=== PATIENT | male | born 1960 | race African-American/Black ===

== ENCOUNTER 2018-09-26 15:38 | Inpatient (IN) | payer OTHER ==
[2018-09-26 18:09] VITALS: BMI 25.4
[2018-09-26] MEDS ORDERED: MELATONIN 5 MG TABLETS PO PRN (22:00)
--- NOTE | 2018-09-26 22:40 | HP ---
"CIWA Score Nausea/Vomitin-Mild Nausea/No Vomiting Muscle Tremors: 4-Moderate,w/Arms Extend Anxiety: 3 Agitation: 4-Moderately Restless Paroxysmal Sweats: 1-Minimal Palms Moist Orientation: 1-Uncertain about Date Tacttile Disturbances: 0-None Auditory Disturbances: 0-None Visual Disturbances: 0-None Headache: 0-None Present CIWA-Ar Total Score: 14 - Admission Criteria OAS Guidelines: Admission for Medically Managed Detox: Requires at least one of the followin. CIWA greater than 12 2. Seizures within the past 24 hours 3. Delirium tremens within the past 24 hours 4. Hallucinations within the past 24 hours 5. Acute intervention needed for co occurring medical disorder 6. Acute intervention needed for co occurring psychiatric disorder 7. Severe withdrawal that cannot be handled at a lower level of care (continued vomiting, continued diarrhea, abnormal vital signs) requiring intravenous medication and/or fluids 8. Patient presents the following: CIWA greater than 12 Admission Criteria Met: Admission criteria met Admission ROS [facility] Chief Complaint: Here for alcohol withdrawal. Allergies/Adverse Reactions: Allergies Allergy/AdvReac Type Severity Reaction Status Date / Time Pork/Porcine Containing Allergy Intermediate Vomiting Verified 09/26/18 20:38 Products History of Present Illness: Alcohol use began at age 14. Cocaine use began at age 17. Nicotine use began at age 14. Declined patch. Will accept nicotine gum. Denies benzo use. Denies hx blackouts, seizures, overdoses. Longest length of sobriety 6 months on outside. States meetings helped to maintain sobriety. States hx abnormal heart beat and EKG. Denies heart attack, chest pain, edema, or SOB. Denies depression or mental health problems. Denies thoughts of harming self or others. Search Terms: Jonathan Clayton, 1960 Search Date: 09/26/2018 10:47:11 PM The Drug Utilization Report below displays all of the controlled substance prescriptions, if any, that your patient has filled in the last twelve months. The information displayed on this report is compiled from pharmacy submissions to the Department, and accurately reflects the information as submitted by the pharmacies. This report was requested by: Celeste Sousa | Reference #: [id number] There are no results for the search terms that you entered. Exam Limitations: No Limitations - Ebola screening Have you traveled outside of the country in the last 21 days: No Have you had contact with anyone from an Ebola affected area: No Have you been sick,other than usual withdrawal symptoms: No Do you have a fever: No - Review of Systems Constitutional: Changes in sleep (Difficulty falling asleep) EENT: reports: Nose Congestion, Dental Problems (Missing teeth. No pain. Chews and swallows okay.) Respiratory: reports: No Symptoms reported Cardiac: reports: No Symptoms Reported GI: reports: Diarrhea (Soft, watery, brown), Nausea : reports: Frequency (w/o burning or pain) Musculoskeletal: reports: Other (Frequent cramps in left leg) Integumentary: reports: Other (Scab on (R) thumb) Neuro: reports: Tremors Endocrine: reports: Increased Thirst Hematology: reports: No Symptoms Reported Psychiatric: reports: Judgement Intact, Orientated x3 (Missed by 1 day), Agitated, Anxious Patient History - Patient Medical History Hx Asthma: No Hx Chronic Obstructive Pulmonary Disease (COPD): No Hx Cardiac Disorders: No Hx Hypertension: No Hx Seizures: No Hx Diabetes: No Hx Gastrointestinal Disorders: No Hx Liver Disease: No Hx Genitourinary Disorders: No Hx Sexually Transmitted Disorders: No Hx Renal Disease (ESRD): No Hx Human Immunodeficiency Virus (HIV): No (2018) Hx Depression: No Hx Suicide Attempt: No Hx Schizophrenia: No - Patient Surgical History Past Surgical History: No Hx Neurologic Surgery: No Hx Cataract Extraction: No Hx Cardiac Surgery: No Hx Lung Surgery: No Hx Breast Surgery: No Hx Breast Biopsy: No Hx Abdominal Surgery: No Hx Appendectomy: No Hx Cholecystectomy: No Hx Genitourinary Surgery: No Hx Section: No Hx Orthopedic Surgery: No Anesthesia Reaction: No - PPD History Previous Implant?: Yes Documented Results: Negative w/proof Implanted On Prior R Admission?: No PPD to be Administered?: Yes - Smoking Cessation Smoking history: Current every day smoker Have you smoked in the past 12 months: Yes Aproximately how many cigarettes per day: 10 Hx Chewing Tobacco Use: No Initiated information on smoking cessation: Yes 'Breaking Loose' booklet given: 09/26/18 - Substance & Tx. History Hx Alcohol Use: Yes Hx Substance Use: Yes Substance Use Type: Alcohol, Cocaine Hx Substance Use Treatment: Yes (detox, rehab at [facility]) - Substances Abused Alcohol Route: Oral Frequency: Daily Amount used: liquor- 2 pint, beer- 1/2 case Age of first use: 14 Date of Last Use: 09/26/18 Crack Route: Smoking Frequency: Daily Amount used: 2gm Age of first use: 17 Date of Last Use: 09/25/18 Admission Physical Exam S - Vital Signs Vital Signs: Vital Signs - 24 hr 09/26/18 18:08 Temperature 98.6 F Pulse Rate 77 Respiratory 18 Rate Blood Pressure 154/92 - Physical General Appearance: Yes: Mild Distress, Tremorous, Sweating, Anxious HEENTM: Yes: EOMI (Jerking movement of eyes w/ lateral gaze), Normal Voice, CHARBEL , Pharynx Normal Respiratory: Yes: Chest Non-Tender, Lungs Clear, Normal Breath Sounds, No Respiratory Distress Neck: Yes: Supple, Thyroid enlarged Breast: Yes: Breast Exam Deferred Cardiology: Yes: Regular Rhythm, S1, S2, Tachycardia Abdominal: Yes: Non Tender, Flat, Soft, Increased Bowel Sounds Genitourinary: Yes: Within Normal Limits Back: Yes: Normal Inspection Musculoskeletal: Yes: full range of Motion Extremities: Yes: Normal Capillary Refill, Normal Range of Motion, Non-Tender, Tremors (Increased trremors of hands when arms elevated) 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 NML intact (Jerking movement of eyes w/ lateral gaze), Fully Oriented, Alert, Motor Strength 5/5, Normal Response Integumentary: Yes: Normal Color, Dry (Decreased skin turgor), Warm, Other ( Healing lesion (R) thumb area w/ thickened skin growth.) Lymphatic: Yes: Within Normal Limits - Diagnostic (1) Alcohol dependence with uncomplicated withdrawal Current Visit: Yes Status: Acute (2) Nicotine dependence, uncomplicated Current Visit: Yes Status: Chronic Qualifiers: Nicotine product type: cigarettes Qualified Code(s): F17.210 - Nicotine dependence, cigarettes, uncomplicated (3) Cocaine dependence, uncomplicated Current Visit: Yes Status: Chronic (4) Hand lesion Current Visit: Yes Status: Chronic (5) Tachycardia Current Visit: Yes Status: Chronic (6) Nystagmus Current Visit: Yes Status: Acute (7) Enlarged thyroid Current Visit: Yes Status: Chronic (8) Abnormal EKG Current Visit: Yes Status: Chronic Comment: States told had an abnormal EKG in the past w/ a fast heart beat. Denies chest pain, SOB, edema BHS Breath Alcohol Content Breath Alcohol Content: 0.12 Urine Drug Screen - Results Drug Screen Negative: No Urine Drug Screen Results: TATO-Cocaine, BZO-Benzodiazepines"
[2018-09-26] MEDS ORDERED: LOPERAMIDE HCL 2 MG CAPSULE PO PRN (23:35)
[2018-09-26] MEDS ORDERED: MAGNESIUM HYDROX 2400MG/30ML ORAL SUSPENSION 30 ML CUP PO PRN (23:35)
[2018-09-26] MEDS ORDERED: IBUPROFEN 400 MG TABLET (FP) PO PRN (23:35)
[2018-09-26] MEDS ORDERED: MAG HYDROX/AL HYDROX/SIMETH 30 ML UNIT-DOSE CUP PO PRN (23:35)
[2018-09-26] MEDS ORDERED: MENTHOL/PHENOL 1 EACH UD MM PRN (23:35)
[2018-09-26] MEDS ORDERED: chlordiazePOXIDE HCL 25 MG CAPSULE PO PRN (23:35)
[2018-09-26] MEDS ORDERED: ACETAMINOPHEN 325 MG TABLET (FP) PO PRN (23:35)
[2018-09-26] MEDS ORDERED: NICOTINE POLACRILEX 2 MG GUM BC PRN (23:35)
[2018-09-26] MEDS ORDERED: MAGNESIUM CITRATE 300 ML BOTTLE PO PRN (23:35)
[2018-09-26] MEDS ORDERED: P-EPHED 60MG/TRIPROLIDI 2.5MG TABLET PO PRN (23:35)
[2018-09-26] MEDS ORDERED: guaiFENesin 200 MG/10 ML 10 ML UNIT-DOSE CUPS PO PRN (23:37)
[2018-09-26] MEDS ORDERED: BACITRACIN 0.9 GM PACKET TP SCH (23:45)
[2018-09-27] MEDS: chlordiazePOXIDE HCL 25 MG CAPSULE PO SCH ×5 (00:41→22:10)
[2018-09-27] MEDS: BACITRACIN 0.9 GM PACKET TP SCH ×3 (00:44→22:10)
[2018-09-27] MEDS ORDERED: ASPIRIN 325 MG TABLET PO ONE (01:24)
--- NOTE | 2018-09-27 08:37 | EKG ---
Test Reason : Blood Pressure : / mmHG Vent. Rate : 067 BPM Atrial Rate : 067 BPM P-R Int : 152 ms QRS Dur : 112 ms QT Int : 432 ms P-R-T Axes : 049 003 054 degrees QTc Int : 456 ms NORMAL SINUS RHYTHM POSSIBLE LEFT ATRIAL ENLARGEMENT INCOMPLETE RIGHT BUNDLE BRANCH BLOCK LEFT VENTRICULAR HYPERTROPHY CANNOT RULE OUT SEPTAL INFARCT , AGE UNDETERMINED ABNORMAL ECG NO PREVIOUS ECGS AVAILABLE Confirmed by JONO ARNOLD, CLOTILDE ([id number]) on 09/27/2018 8:37:12 AM Referred By: Confirmed By:CLOTILDE DE LA CRUZ MD
[2018-09-27] MEDS: ASPIRIN 81 MG CHEWABLE TABLETS PO SCH (10:53)
[2018-09-27] MEDS: PRENATAL VITAMINS W/ FOLIC ACID TABLET (FP) PO SCH (10:53)
[2018-09-27 11:00] LABS: ALK PHOS 75 U/L (45-117); ANION GAP 5 MMOL/L (8-16); BILIRUBIN,TOTAL 0.6 mg/dL (0.2-1); BLOOD UREA NITROGEN 17 mg/dL (7-18); CALCIUM 8.9 mg/dL (8.5-10.1); CHLORIDE 107 mmol/L (98-107); CO2 28 mmol/L (21-32); CREATININE 1.3 mg/dL (0.55-1.3); GLUCOSE,RANDOM 85 mg/dL (74-106); POTASSIUM 4.4 mmol/L (3.5-5.1); SGOT/AST 16 U/L (15-37); SGPT/ALT 20 U/L (13-61); SODIUM 139 mmol/L (136-145); TOT PROT 6.5 g/dl (6.4-8.2)
[2018-09-27 11:12] LABS: HEMATOCRIT 40.5 % (35.4-49); HEMOGLOBIN 12.9 GM/dL (11.7-16.9); MCH 29.8 pg (25.7-33.7); MCHC 31.9 g/dl (32.0-35.9); MEAN CELL VOLUME 93.6 fl (80-96); MEAN PLT VOLUME 8.8 fl (7.5-11.1); PLATELET COUNT 206 K/MM3 (134-434); RBC 4.32 M/mm3 (4.00-5.60); WHITE BLOOD COUNT 4.2 K/mm3 (4.0-10.0)
--- NOTE | 2018-09-27 16:21 | PN ---
[facility] CIWA - CIWA Score Nausea/Vomitin-No Nausea/No Vomiting Muscle Tremors: None Anxiety: 2 Agitation: 0-Normal Activity Paroxysmal Sweats: 3 Orientation: 0-Oriented Tacttile Disturbances: 3-Moderate Itch/Numb/Burn Auditory Disturbances: 2-Mild Harshness/Frighten Visual Disturbances: 0-None Headache: 0-None Present CIWA-Ar Total Score: 10 S Progress Note (SOAP) Subjective: Interrupted Sleep, Fatigue, Sweating. Objective: PATIENT A & O X 3. IN NO ACUTE DISTRESS. 09/27/18 16:19 Vital Signs Temperature 98.4 F 09/27/18 14:00 Pulse Rate 82 09/27/18 14:00 Respiratory Rate 18 09/27/18 14:00 Blood Pressure 135/67 09/27/18 14:00 O2 Sat by Pulse Oximetry (%) Laboratory Tests 09/27/18 09/27/18 09/27/18 07:45 07:45 07:45 WBC 4.2 RBC 4.32 Hgb 12.9 Hct 40.5 MCV 93.6 MCH 29.8 MCHC 31.9 L RDW 13.0 Plt Count 206 MPV 8.8 Sodium 139 Potassium 4.4 Chloride 107 Carbon Dioxide 28 Anion Gap 5 L BUN 17 Creatinine 1.3 Creat Clearance w eGFR 57.10 Random Glucose 85 Calcium 8.9 Total Bilirubin 0.6 AST 16 ALT 20 Alkaline Phosphatase 75 Total Protein 6.5 Albumin 3.0 L HIV 1&2 Antibody Screen Negative HIV P24 Antigen Negative LABS NOTED. RPR RESULT PENDING. RESULTS OF REPEAT ECG NOTED. PATIENT REPORTS HISTORY OF PREVIOUS ECG ABNORMALITY. 09/27/18 16:20 Assessment: 09/27/18 16:19 WITHDRAWAL SYMPTOMS. Plan: CONTINUE DETOX. D/C IBUPROFEN AND MAGNESIUM-CONTAINING MEDS. FOR ABNORMAL ADMISSION RENAL LAB VALUES.
[2018-09-27] MEDS: THIAMINE HCL 100 MG TABLET (FP) PO SCH (22:11)
[2018-09-28] MEDS: chlordiazePOXIDE HCL 25 MG CAPSULE PO SCH ×3 (05:32→17:08)
--- NOTE | 2018-09-28 08:31 | EKG ---
Test Reason : Blood Pressure : / mmHG Vent. Rate : 078 BPM Atrial Rate : 078 BPM P-R Int : 148 ms QRS Dur : 112 ms QT Int : 416 ms P-R-T Axes : 062 006 066 degrees QTc Int : 474 ms NORMAL SINUS RHYTHM INCOMPLETE RIGHT BUNDLE BRANCH BLOCK SEPTAL INFARCT (CITED ON OR BEFORE 26-SEP-2018) ABNORMAL ECG WHEN COMPARED WITH ECG OF 26-SEP-2018 23:49, QUESTIONABLE CHANGE IN INITIAL FORCES OF SEPTAL LEADS Confirmed by CLOTILDE DE LA CRUZ MD ([id number]) on 09/28/2018 8:31:30 AM Referred By: Confirmed By:CLOTILDE DE LA CRUZ MD
[2018-09-28] MEDS: ASPIRIN 81 MG CHEWABLE TABLETS PO SCH (10:46)
[2018-09-28] MEDS: BACITRACIN 0.9 GM PACKET TP SCH ×2 (10:46→22:22)
[2018-09-28] MEDS: PRENATAL VITAMINS W/ FOLIC ACID TABLET (FP) PO SCH (10:46)
--- NOTE | 2018-09-28 17:42 | PN ---
S CIWA - CIWA Score Nausea/Vomitin Muscle Tremors: 3 Anxiety: 3 Agitation: 3 Paroxysmal Sweats: 3 Orientation: 0-Oriented Tacttile Disturbances: 0-None Auditory Disturbances: 0-None Visual Disturbances: 0-None Headache: 0-None Present CIWA-Ar Total Score: 14 BHS Progress Note (SOAP) Subjective: Interrupted sleep Objective: 09/28/18 17:40 Last Vital Signs Temp Pulse Resp BP Pulse Ox 98.6 F 76 16 151/84 09/28/18 14:28 09/28/18 14:28 09/28/18 14:28 09/28/18 14:28 Elevated b/p noted 151/84 Laboratory Tests 09/27/18 09/27/18 09/27/18 07:45 07:45 07:45 WBC 4.2 RBC 4.32 Hgb 12.9 Hct 40.5 MCV 93.6 MCH 29.8 MCHC 31.9 L RDW 13.0 Plt Count 206 MPV 8.8 Sodium 139 Potassium 4.4 Chloride 107 Carbon Dioxide 28 Anion Gap 5 L BUN 17 Creatinine 1.3 Creat Clearance w eGFR 57.10 Random Glucose 85 Calcium 8.9 Total Bilirubin 0.6 AST 16 ALT 20 Alkaline Phosphatase 75 Total Protein 6.5 Albumin 3.0 L Total T3 RPR Titer HIV 1&2 Antibody Screen Negative HIV P24 Antigen Negative 09/27/18 09/27/18 07:45 07:45 WBC RBC Hgb Hct MCV MCH MCHC RDW Plt Count MPV Sodium Potassium Chloride Carbon Dioxide Anion Gap BUN Creatinine Creat Clearance w eGFR Random Glucose Calcium Total Bilirubin AST ALT Alkaline Phosphatase Total Protein Albumin Total T3 94.00 RPR Titer Nonreactive HIV 1&2 Antibody Screen HIV P24 Antigen Labs reviewed: prerenal azotemia Assessment: 09/28/18 17:40 Withdrawal symptoms Elevated b/p and azotemia noted Plan: Continue detox Elevated b/p: clonidine prn Azotemia: encouraged PO water intake
[2018-09-28] MEDS: chlordiazePOXIDE 5 MG CAPSULE PO SCH (22:22)
[2018-09-28] MEDS: THIAMINE HCL 100 MG TABLET (FP) PO SCH (22:22)
[2018-09-29] MEDS: chlordiazePOXIDE 5 MG CAPSULE PO SCH ×3 (06:05→17:45)
[2018-09-29] MEDS: cloNIDine HCL 0.1 MG TABLET PO PRN ×2 (07:00→15:52)
[2018-09-29] MEDS ORDERED: SIMETHICONE 80 MG TAB.CHEW (FP) PO PRN (10:11)
[2018-09-29 10:36] LABS: URINE APPEARANCE CLEAR; URINE BILIRUBIN NEGATIVE (<2.0 mg/dL); URINE COLOR LTYELLOW; URINE GLUCOSE (UA) NEGATIVE (NEGATIVE); URINE KETONE NEGATIVE (NEGATIVE); URINE LEUK ESTERASE NEGATIVE (NEGATIVE); URINE NITRITE NEGATIVE (NEGATIVE); URINE PROTEIN NEGATIVE (NEGATIVE); URINE UROBILINOGEN NEGATIVE mg/dL (0.2-1.0)
--- NOTE | 2018-09-29 10:41 | PN ---
BHS Progress Note (SOAP) Subjective: feeling better gi gassy tremor sweating Objective: 09/29/18 10:40 Vital Signs Temperature 97.3 F L 09/29/18 09:33 Pulse Rate 69 09/29/18 09:33 Respiratory Rate 18 09/29/18 09:33 Blood Pressure 111/66 09/29/18 09:33 O2 Sat by Pulse Oximetry (%) Laboratory Last Values WBC 4.2 K/mm3 (4.0-10.0) 09/27/18 07:45 RBC 4.32 M/mm3 (4.00-5.60) 09/27/18 07:45 Hgb 12.9 GM/dL (11.7-16.9) 09/27/18 07:45 Hct 40.5 % (35.4-49) 09/27/18 07:45 MCV 93.6 fl (80-96) 09/27/18 07:45 MCH 29.8 pg (25.7-33.7) 09/27/18 07:45 MCHC 31.9 g/dl (32.0-35.9) L 09/27/18 07:45 RDW 13.0 % (11.9-15.9) 09/27/18 07:45 Plt Count 206 K/MM3 (134-434) 09/27/18 07:45 MPV 8.8 fl (7.5-11.1) 09/27/18 07:45 Sodium 139 mmol/L (136-145) 09/27/18 07:45 Potassium 4.4 mmol/L (3.5-5.1) 09/27/18 07:45 Chloride 107 mmol/L (98-107) 09/27/18 07:45 Carbon Dioxide 28 mmol/L (21-32) 09/27/18 07:45 Anion Gap 5 MMOL/L (8-16) L 09/27/18 07:45 BUN 17 mg/dL (7-18) 09/27/18 07:45 Creatinine 1.3 mg/dL (0.55-1.3) 09/27/18 07:45 Creat Clearance w eGFR 57.10 (>60) 09/27/18 07:45 Random Glucose 85 mg/dL (74-106) 09/27/18 07:45 Calcium 8.9 mg/dL (8.5-10.1) 09/27/18 07:45 Total Bilirubin 0.6 mg/dL (0.2-1) 09/27/18 07:45 AST 16 U/L (15-37) 09/27/18 07:45 ALT 20 U/L (13-61) 09/27/18 07:45 Alkaline Phosphatase 75 U/L (45-117) 09/27/18 07:45 Total Protein 6.5 g/dl (6.4-8.2) 09/27/18 07:45 Albumin 3.0 g/dl (3.4-5.0) L 09/27/18 07:45 Total T3 94.00 ng/dl (71-180) 09/27/18 07:45 RPR Titer Nonreactive (NONREACTIVE) 09/27/18 07:45 HIV 1&2 Antibody Screen Negative 09/27/18 07:45 HIV P24 Antigen Negative 09/27/18 07:45 lab noted Assessment: 09/29/18 10:41 mild withdrawal sx Plan: continue detox
[2018-09-29] MEDS: ASPIRIN 81 MG CHEWABLE TABLETS PO SCH (10:43)
[2018-09-29] MEDS: PRENATAL VITAMINS W/ FOLIC ACID TABLET (FP) PO SCH (10:43)
[2018-09-29] MEDS: BACITRACIN 0.9 GM PACKET TP SCH ×2 (14:03→22:19)
[2018-09-29] MEDS: THIAMINE HCL 100 MG TABLET (FP) PO SCH (22:19)
[2018-09-29] MEDS: chlordiazePOXIDE HCL 10 MG CAPSULE PO SCH (22:19)
[2018-09-30] MEDS: chlordiazePOXIDE HCL 10 MG CAPSULE PO SCH ×2 (06:52→13:24)
[2018-09-30 09:16] VITALS: TEMP 97.1
[2018-09-30] MEDS: ASPIRIN 81 MG CHEWABLE TABLETS PO SCH (10:43)
[2018-09-30] MEDS: BACITRACIN 0.9 GM PACKET TP SCH (10:43)
[2018-09-30] MEDS: PRENATAL VITAMINS W/ FOLIC ACID TABLET (FP) PO SCH (10:44)
[2018-09-30 13:21] VITALS: BP 127/76; PULSE 84
--- NOTE | 2018-09-30 15:16 | DS ---
[facility] Detox Discharge Summary Admission Date: 09/26/18 Discharge Date: 09/30/18 - History Present History: Alcohol Dependence, Cocaine Dependence Additional Comments: PATIENT SCHEDULED FOR DISCHARGE FROM DETOX UNIT TODAY. PATIENT GOING TO [facility] PATIENT WAS DISCHARGED FROM DETOX UNIT TO BE TAKEN OVER TO REHAB UNIT IN STABLE MEDICAL CONDITION. Pertinent Past History: History of Enlarged Thyroid, History of Abnormal EKG, Nicotine Dependence, Hand Lesion, History of Nystagmus, History of Tachycardia. - Physical Exam Results Vital Signs: Vital Signs Temperature 97.1 F L 09/30/18 13:20 Pulse Rate 84 09/30/18 13:20 Respiratory Rate 18 09/30/18 13:20 Blood Pressure 127/76 09/30/18 13:20 O2 Sat by Pulse Oximetry (%) Pertinent Admission Physical Exam Findings: WITHDRAWAL SYMPTOMS. Laboratory Tests 09/27/18 09/27/18 09/27/18 07:45 07:45 07:45 WBC 4.2 RBC 4.32 Hgb 12.9 Hct 40.5 MCV 93.6 MCH 29.8 MCHC 31.9 L RDW 13.0 Plt Count 206 MPV 8.8 Sodium 139 Potassium 4.4 Chloride 107 Carbon Dioxide 28 Anion Gap 5 L BUN 17 Creatinine 1.3 Creat Clearance w eGFR 57.10 Random Glucose 85 Calcium 8.9 Total Bilirubin 0.6 AST 16 ALT 20 Alkaline Phosphatase 75 Total Protein 6.5 Albumin 3.0 L Total T3 Urine Color Urine Appearance Urine pH Ur Specific [place] Urine Protein Urine Glucose (UA) Urine Ketones Urine Blood Urine Nitrite Urine Bilirubin Urine Urobilinogen Ur Leukocyte Esterase RPR Titer HIV 1&2 Antibody Screen Negative HIV P24 Antigen Negative 09/27/18 09/27/18 09/29/18 07:45 07:45 07:00 WBC RBC Hgb Hct MCV MCH MCHC RDW Plt Count MPV Sodium Potassium Chloride Carbon Dioxide Anion Gap BUN Creatinine Creat Clearance w eGFR Random Glucose Calcium Total Bilirubin AST ALT Alkaline Phosphatase Total Protein Albumin Total T3 94.00 Urine Color Ltyellow Urine Appearance Clear Urine pH 5.0 Ur Specific [place] 1.017 Urine Protein Negative Urine Glucose (UA) Negative Urine Ketones Negative Urine Blood Negative Urine Nitrite Negative Urine Bilirubin Negative Urine Urobilinogen Negative Ur Leukocyte Esterase Negative RPR Titer Nonreactive HIV 1&2 Antibody Screen HIV P24 Antigen LABS NOTED. - Treatment Hospital Course: Detox Protocol Followed, Detoxed Safely, Responded well, Discharged Condition Good, Rehab Referral Accepted Patient has Accepted a Rehab Referral to: [facility] ([place], [place]). - Medication Discharge Medications: Ambulatory Orders NK [No Known Home Medication] 09/26/18 - Diagnosis (1) Alcohol dependence with uncomplicated withdrawal Status: Acute (2) Nystagmus Status: Acute (3) Abnormal EKG Status: Chronic (4) Cocaine dependence, uncomplicated Status: Chronic (5) Enlarged thyroid Status: Chronic (6) Hand lesion Status: Chronic (7) Nicotine dependence, uncomplicated Status: Chronic Qualifiers: Nicotine product type: cigarettes Qualified Code(s): F17.210 - Nicotine dependence, cigarettes, uncomplicated (8) Tachycardia Status: Chronic - AMA Did Patient Leave Against Medical Advice: No
== END 2018-09-30 13:28 | disposition other institution (70) | DRG 774 ==
LOC: YASAS 15:38 → Y3N 22:40
PROC: HZ2ZZZZ Detoxification Services for Substance Abuse Treatment (ICD-10-PCS; principal; 2018-09-26)
DX: F10.230 Alcohol dependence with withdrawal, uncomplicated (principal); F14.20 Cocaine dependence, uncomplicated; F17.210 Nicotine dependence, cigarettes, uncomplicated; H55.00 Unspecified nystagmus; L98.9 Disorder of the skin and subcutaneous tissue, unspecified; R79.89 Other specified abnormal findings of blood chemistry; R03.0 Elevated blood-pressure reading, without diagnosis of hypertension; E04.9 Nontoxic goiter, unspecified; Z86.79 Personal history of other diseases of the circulatory system
CPT/HCPCS: 36415; 80053; 81003; 84436; 84480; 85027; 86593; 87389; 93005; 93010; J0735

== ENCOUNTER 2018-09-30 13:38 | Inpatient (IN) | payer OTHER ==
[2018-09-30] MEDS ORDERED: P-EPHED 60MG/TRIPROLIDI 2.5MG TABLET PO PRN (14:03)
[2018-09-30] MEDS ORDERED: MAG HYDROX/AL HYDROX/SIMETH 30 ML UNIT-DOSE CUP PO PRN (14:03)
[2018-09-30] MEDS ORDERED: IBUPROFEN 400 MG TABLET (FP) PO PRN (14:03)
[2018-09-30] MEDS ORDERED: guaiFENesin/D-METHORPHAN HB 10 ML UNIT-DOSE CUPS PO PRN (14:03)
[2018-09-30] MEDS ORDERED: LOPERAMIDE HCL 2 MG CAPSULE PO PRN (14:03)
[2018-09-30] MEDS ORDERED: MAGNESIUM CITRATE 300 ML BOTTLE PO PRN (14:03)
[2018-09-30] MEDS ORDERED: MENTHOL/PHENOL 1 EACH UD MM PRN (14:03)
[2018-09-30] MEDS ORDERED: MAGNESIUM HYDROX 2400MG/30ML ORAL SUSPENSION 30 ML CUP PO PRN (14:03)
[2018-09-30] MEDS ORDERED: ACETAMINOPHEN 325 MG TABLET (FP) PO PRN (14:03)
[2018-09-30] MEDS ORDERED: NICOTINE POLACRILEX 2 MG GUM BUC PRN (14:05)
--- NOTE | 2018-09-30 14:08 | HP ---
NELLY ARNOLD Rehab Assess/Revision - Admission History Ad[facility]hab [facility] Date of Admission to Rehab: 09/30/18 - Findings Detox History & Physical reviewed: Yes Concur with findings: Yes Comments/Additional Findings: detox completed on today and referred to [facility]. Inpatient Rehab Admission - Initial Determination Are CD services needed?: Yes Free of communicable disease: Yes Not in need of hospitalization: Yes - Rehab Admission Criteria Patient is meeting Inpatient Rehab admission criteria:: Yes
[2018-09-30] MEDS: NICOTINE 14 MG/24 HOURS TOPICAL PATCH TD SCH (15:25)
[2018-09-30] MEDS: THIAMINE HCL 100 MG TABLET (FP) PO SCH (21:25)
[2018-09-30] MEDS: MELATONIN 5 MG TABLETS PO PRN (21:26)
--- NOTE | 2018-10-01 06:16 | HP ---
Psychiatrist Admission - Data Date of interview: 10/01/18 Admission source: [facility] Identifying data: THis is the first [facility] admission for this 58 years old maried Black male, father of 2 children, unemployed with no source of income, homeless Medical History: Unremarkable. Smokes 10 cigarettes daily Psychiatric History: Denies history of previous psychiatric treatment Physical/Sexual Abuse/Trauma History: Denies history of emotional, physical or sexual abuse as well as DV relationship. No service Additional Comment: Denies criminal history Vital Signs: Vital Signs - 24 hr 09/30/18 10/01/18 10/01/18 14:00 00:30 03:30 Temperature 97.9 F Pulse Rate 86 Respiratory 18 18 18 Rate Blood Pressure 141/75 Allergies/Adverse Reactions: Allergies Allergy/AdvReac Type Severity Reaction Status Date / Time Pork/Porcine Containing Allergy Intermediate Vomiting Verified 09/26/18 20:38 Products Date of last physical exam: 09/26/18 Concur with the findings of this exam: Yes - Substance Abuse/Tx History Hx Alcohol Use: Yes Hx Substance Use: Yes Substance Use Type: Alcohol (Started drinking alcohol at age 14, consumes 2 pints of liquor & half a can of beer daily. Last drank on 09/26/18), Cocaine ( Started smoking crack cocaine at age 17, consumes 2 grams daily. Last smoked on 09/25/18) Hx Substance Use Treatment: No Mental Status Exam - Mental Status Exam Alert and Oriented to: Time, Place, Person Cognitive Function: Fair Patient Appearance: Disheveled Mood: Hopeful, Euthymic Affect: Appropriate Speech Pattern: Clear Voice Loudness: Normal Thought Process: Intact, Goal Oriented Thought Disorder: Not Present Hallucinations: Denies Suicidal Ideation: Denies Homicidal Ideation: Denies Insight/Judgement: Fair Sleep: Fair Appetite: Good Muscle strength/Tone: Normal Gait/Station: Normal Psychiatric Findings - Problem List ([place] 1, 2,3) (1) Alcohol dependence Current Visit: Yes Status: Acute (2) Cocaine dependence Current Visit: Yes Status: Acute (3) Nicotine dependence Current Visit: Yes Status: Chronic - Initial Treatment Plan Initial Treatment Plan: Monitor progress
[2018-10-01] MEDS: PRENATAL VITAMINS W/ FOLIC ACID TABLET (FP) PO SCH (09:56)
[2018-10-01] MEDS: NICOTINE 14 MG/24 HOURS TOPICAL PATCH TD SCH (09:57)
[2018-10-01] MEDS: MELATONIN 5 MG TABLETS PO PRN (21:21)
[2018-10-01] MEDS: THIAMINE HCL 100 MG TABLET (FP) PO SCH (21:21)
[2018-10-02] MEDS: PRENATAL VITAMINS W/ FOLIC ACID TABLET (FP) PO SCH (11:32)
[2018-10-02] MEDS: NICOTINE 14 MG/24 HOURS TOPICAL PATCH TD SCH (11:32)
[2018-10-02] MEDS: MELATONIN 5 MG TABLETS PO PRN (21:17)
[2018-10-02] MEDS: THIAMINE HCL 100 MG TABLET (FP) PO SCH (21:17)
[2018-10-03] MEDS: NICOTINE 14 MG/24 HOURS TOPICAL PATCH TD SCH (10:04)
[2018-10-03] MEDS: PRENATAL VITAMINS W/ FOLIC ACID TABLET (FP) PO SCH (10:04)
--- NOTE | 2018-10-03 10:37 | PN ---
BHS Progress Note Note: Patient complains of sleeping poorly despite taking Melatonin 5 mg po HS prn. Requests to be ordered a higher dosage. Melatonin dosage is increased to 10 mg po HS prn for insomnia
[2018-10-03] MEDS: THIAMINE HCL 100 MG TABLET (FP) PO SCH (21:21)
[2018-10-03] MEDS: MELATONIN 5 MG TABLETS PO PRN (21:21)
[2018-10-04] MEDS ORDERED: cloNIDine HCL 0.1 MG TABLET PO ONE (07:03)
--- NOTE | 2018-10-04 07:06 | PN ---
BHS Progress Note Note: Patient's blood pressure is B/P 154/111. Patient is asymptomatic Vital Signs Temperature 97.6 F 10/04/18 06:42 Pulse Rate 84 10/04/18 06:43 Respiratory Rate 18 10/04/18 06:42 Blood Pressure 154/111 H 10/04/18 06:43 O2 Sat by Pulse Oximetry (%) Action: Clonidine 0.1mg 1 tablet oral ordered
[2018-10-04] MEDS: NICOTINE 14 MG/24 HOURS TOPICAL PATCH TD SCH (10:11)
[2018-10-04] MEDS: PRENATAL VITAMINS W/ FOLIC ACID TABLET (FP) PO SCH (10:11)
[2018-10-04] MEDS: THIAMINE HCL 100 MG TABLET (FP) PO SCH (21:24)
[2018-10-04] MEDS: MELATONIN 5 MG TABLETS PO PRN (21:25)
[2018-10-05] MEDS: PRENATAL VITAMINS W/ FOLIC ACID TABLET (FP) PO SCH (11:07)
[2018-10-05] MEDS: NICOTINE 14 MG/24 HOURS TOPICAL PATCH TD SCH (11:09)
[2018-10-05] MEDS: MELATONIN 5 MG TABLETS PO PRN (21:18)
[2018-10-05] MEDS: THIAMINE HCL 100 MG TABLET (FP) PO SCH (21:18)
[2018-10-06] MEDS: NICOTINE 14 MG/24 HOURS TOPICAL PATCH TD SCH (10:11)
[2018-10-06] MEDS: PRENATAL VITAMINS W/ FOLIC ACID TABLET (FP) PO SCH (10:11)
[2018-10-06] MEDS: THIAMINE HCL 100 MG TABLET (FP) PO SCH (21:26)
[2018-10-06] MEDS: MELATONIN 5 MG TABLETS PO PRN (21:26)
[2018-10-07 07:04] VITALS: BP 133/81; PULSE 83; TEMP 97.4
[2018-10-07] MEDS: NICOTINE 14 MG/24 HOURS TOPICAL PATCH TD SCH (10:29)
[2018-10-07] MEDS: PRENATAL VITAMINS W/ FOLIC ACID TABLET (FP) PO SCH (10:29)
[2018-10-07] MEDS: MELATONIN 5 MG TABLETS PO PRN (21:19)
[2018-10-07] MEDS: THIAMINE HCL 100 MG TABLET (FP) PO SCH (21:20)
[2018-10-08] MEDS: NICOTINE 14 MG/24 HOURS TOPICAL PATCH TD SCH (10:05)
[2018-10-08] MEDS: PRENATAL VITAMINS W/ FOLIC ACID TABLET (FP) PO SCH (10:05)
--- NOTE | 2018-10-08 11:26 | PN ---
Psychiatric Progress Note Vital Signs: Vital Signs Period Temp Pulse Resp BP Sys/[place] Pulse Ox Last 24 Hr 18-18 Date of Session: 10/08/18 Chief Complaint:: Discharge visit HPI: Patient addressed Alcohol and Cocaine dependence. ROS: Hand lesion,Enlarged thyroid. Current Medications: Active Medications Generic Name Dose Route Start Last Admin Trade Name Freq PRN Reason Stop Dose Admin Acetaminophen 650 mg 09/30/18 14:03 Tylenol - PO Q4H PRN FEVER Al Hydroxide/Mg Hydroxide 30 ml 09/30/18 14:03 Mylanta Oral Suspension - PO Q6H PRN DYSPEPSIA Eucalyptus/Menthol/Phenol/Sorbitol 1 each 09/30/18 14:03 Cepastat Lozenge - MM Q4H PRN SORE THROAT Guaifenesin 10 ml 09/30/18 14:03 Robitussin Dm - PO Q6H PRN COUGH Ibuprofen 400 mg 09/30/18 14:03 Motrin - PO Q6H PRN Pain Level 4-6 Loperamide HCl 4 mg 09/30/18 14:03 Imodium - PO Q6H PRN DIARRHEA Magnesium Citrate 300 ml 09/30/18 14:03 Citroma - PO Q48H PRN CONSTIPATION Magnesium Hydroxide 30 ml 09/30/18 14:03 Milk Of Magnesia - PO DAILY PRN CONSTIPATION Melatonin 10 mg 10/03/18 10:33 10/07/18 21:19 Melatonin PO 10 mg HS PRN Administration INSOMNIA Nicotine 14 mg 09/30/18 15:10 10/08/18 10:05 Nicoderm Patch - TD Not Given DAILY LAISHA Nicotine Polacrilex 2 mg 09/30/18 14:05 Nicorette Gum - BUC Q2H PRN NICOTINE REPLACEMENT RX Multivit/Folic Acid/Iron 1 tab 10/01/18 10:00 10/08/18 10:05 Vitamins (Sjr) - PO Not Given DAILY LAISHA Pseudoephedrine/Triprolidine 1 combo 09/30/18 14:03 Actifed - PO TID PRN NASAL CONGESTION Thiamine HCl 100 mg 09/30/18 22:00 10/07/18 21:20 Vitamin B1 - PO 100 mg HS LAISHA Administration Current Side Effect: No Lab tests ordered: No Lab tests reviewed: Yes Provider note:: Patient will complete this program tomorrow 10/09/18.He has met his treatment goals and will continue to address his issues on outpatient basis at the [facility] in [facility]. Patient identifies areas of difficulties,behaviors which contribute to relapse.Coping skills,support utilization has been discussed with the patient as well as other resourses to maintain recovery. Emotional support provided. Patient is stable for discharge tomorrow 10/09/18. Total face to face time:: 30 Mental Status Exam - Mental Status Exam Alert and Oriented to: Time, Place, Person Cognitive Function: Grossly Intact Patient Appearance: Well Groomed Mood: Euthymic Affect: Appropriate, Mood Congruent Patient Behavior: Cooperative Speech Pattern: Clear Voice Loudness: Normal Thought Process: Goal Oriented Thought Disorder: Not Present Hallucinations: Denies Suicidal Ideation: Denies Homicidal Ideation: Denies Insight/Judgement: Fair Sleep: Fair Appetite: Fair Muscle strength/Tone: Normal Gait/Station: Normal Psychiatric Treatment Plan - Problem List (1) Alcohol dependence Current Visit: Yes (2) Cocaine dependence Current Visit: Yes (3) Nicotine dependence Current Visit: Yes (4) Nystagmus Current Visit: No
[2018-10-08] MEDS: THIAMINE HCL 100 MG TABLET (FP) PO SCH (23:03)
[2018-10-09] MEDS: NICOTINE 14 MG/24 HOURS TOPICAL PATCH TD SCH (10:21)
[2018-10-09] MEDS: PRENATAL VITAMINS W/ FOLIC ACID TABLET (FP) PO SCH (10:21)
--- NOTE | 2018-10-09 10:42 | PN ---
[facility] Progress Note Note: PT COMPLETED REHAB AND DISCHARGING TODAY. ALERT O X 3. REFERRED TO [facility] OPD- ON [address], [place], [place] TREATMENT. 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 PT REPORTS HE WILL FOLLOW UP AT [facility] FOR MEDICAL MANAGEMENT IF NEEDED. Vital Signs - 24 hr 10/09/18 10/09/18 10/09/18 00:30 03:30 06:46 Respiratory 18 18 18 Rate Active Medications Generic Name Dose Route Start Last Admin Trade Name Freq PRN Reason Stop Dose Admin Acetaminophen 650 mg 09/30/18 14:03 Tylenol - PO Q4H PRN FEVER Al Hydroxide/Mg Hydroxide 30 ml 09/30/18 14:03 Mylanta Oral Suspension - PO Q6H PRN DYSPEPSIA Eucalyptus/Menthol/Phenol/Sorbitol 1 each 09/30/18 14:03 Cepastat Lozenge - MM Q4H PRN SORE THROAT Guaifenesin 10 ml 09/30/18 14:03 Robitussin Dm - PO Q6H PRN COUGH Ibuprofen 400 mg 09/30/18 14:03 Motrin - PO Q6H PRN Pain Level 4-6 Loperamide HCl 4 mg 09/30/18 14:03 Imodium - PO Q6H PRN DIARRHEA Magnesium Citrate 300 ml 09/30/18 14:03 Citroma - PO Q48H PRN CONSTIPATION Magnesium Hydroxide 30 ml 09/30/18 14:03 Milk Of Magnesia - PO DAILY PRN CONSTIPATION Melatonin 10 mg 10/03/18 10:33 10/07/18 21:19 Melatonin PO 10 mg HS PRN Administration INSOMNIA Nicotine 14 mg 09/30/18 15:10 10/09/18 10:21 Nicoderm Patch - TD Not Given DAILY LAISHA Nicotine Polacrilex 2 mg 09/30/18 14:05 Nicorette Gum - BUC Q2H PRN NICOTINE REPLACEMENT RX Multivit/Folic Acid/Iron 1 tab 10/01/18 10:00 10/09/18 10:21 Vitamins (Sjr) - PO 1 tab DAILY LAISHA Administration Pseudoephedrine/Triprolidine 1 combo 09/30/18 14:03 Actifed - PO TID PRN NASAL CONGESTION Thiamine HCl 100 mg 09/30/18 22:00 10/08/18 23:03 Vitamin B1 - PO Not Given HS LAISHA PLAN:FOLLOW UP WITH AFTERCARE AND MEDICAL MANAGEMENT RECOMMENDED.
== END 2018-10-09 10:15 | disposition home or self-care (01) | DRG 772 ==
LOC: YASAS 13:38 → Y5N 13:39
PROVIDERS: ADMIT Psychiatry & Neurology Psychiatry; ATTEND Psychiatry & Neurology Psychiatry
PROC: HZ42ZZZ Group Counseling for Substance Abuse Treatment, Cognitive-Behavioral (ICD-10-PCS; principal; 2018-09-30)
DX: F10.20 Alcohol dependence, uncomplicated (principal); F14.20 Cocaine dependence, uncomplicated; F17.210 Nicotine dependence, cigarettes, uncomplicated; H55.00 Unspecified nystagmus; R03.0 Elevated blood-pressure reading, without diagnosis of hypertension
CPT/HCPCS: J0735

== ENCOUNTER 2019-08-21 20:25 | Inpatient (IN) | payer OTHER ==
[2019-08-21 21:48] VITALS: BMI 28.5
--- NOTE | 2019-08-22 01:51 | HP ---
CIWA Score Nausea/Vomitin Muscle Tremors: 3 Anxiety: 3 Agitation: 4-Moderately Restless Paroxysmal Sweats: 1-Minimal Palms Moist Orientation: 0-Oriented Tacttile Disturbances: 0-None Auditory Disturbances: 0-None Visual Disturbances: 0-None Headache: 3-Moderate CIWA-Ar Total Score: 17 - Admission Criteria OASAS Guidelines: Admission for Medically Managed Detox: Requires at least one of the followin. CIWA greater than 12 2. Seizures within the past 24 hours 3. Delirium tremens within the past 24 hours 4. Hallucinations within the past 24 hours 5. Acute intervention needed for co occurring medical disorder 6. Acute intervention needed for co occurring psychiatric disorder 7. Severe withdrawal that cannot be handled at a lower level of care (continued vomiting, continued diarrhea, abnormal vital signs) requiring intravenous medication and/or fluids 8. Admitting History and Physical - Smoking History Smoking history: Current every day smoker Have you smoked in the past 12 months: Yes Aproximately how many cigarettes per day: 10 - Alcohol/Substance Use Hx Alcohol Use: Yes Admission ROS [facility] Chief Complaint: Alcohol withdrawal symptoms Allergies/Adverse Reactions: Allergies Allergy/AdvReac Type Severity Reaction Status Date / Time Pork/Porcine Containing Allergy Intermediate Vomiting Verified 08/21/19 21:38 Products History of Present Illness: 59 years old male with a long history of alcohol dependence is seeking admission to detox. Patient reports that his last detox was in September 2018 at [facility]. He reports a year of sobriety and regrets recent relapse. He denies medical history and denies suicidal ideation at this time. He states that he had a blackout 2 weeks ago Exam Limitations: No Limitations - Ebola screening Have you traveled outside of the country in the last 21 days: No (N) Have you had contact with anyone from an Ebola affected area: No Do you have a fever: No - Review of Systems Constitutional: Chills, Malaise, Night Sweats, Changes in sleep EENT: reports: Double Vision Respiratory: reports: No Symptoms reported Cardiac: reports: No Symptoms Reported GI: reports: Diarrhea, Poor Appetite, Poor Fluid Intake, Vomiting, Abdominal cramping : reports: No Symptoms Reported Musculoskeletal: reports: Other (cramps) Integumentary: reports: Dryness, Flushing Neuro: reports: Tremors Endocrine: reports: No Symptoms Reported Hematology: reports: No Symptoms Reported Psychiatric: reports: Judgement Intact, Mood/Affect Appropiate, Orientated x3, Anxious Other Systems: Reviewed and Negative Patient History - Patient Medical History Hx Anemia: No Hx Asthma: No Hx Chronic Obstructive Pulmonary Disease (COPD): No Hx Cancer: No Hx Cardiac Disorders: No Hx Congestive Heart Failure: No Hx Hypertension: No Hx Seizures: No Hx Diabetes: No Hx Gastrointestinal Disorders: No Hx Liver Disease: No Hx Genitourinary Disorders: No Hx Sexually Transmitted Disorders: No Hx Renal Disease (ESRD): No Hx Human Immunodeficiency Virus (HIV): No (2018) Hx Hepatitis C: No Hx Depression: No Hx Suicide Attempt: No Hx Schizophrenia: No - Patient Surgical History Past Surgical History: No Hx Neurologic Surgery: No Hx Cataract Extraction: No Hx Cardiac Surgery: No Hx Lung Surgery: No Hx Abdominal Surgery: No Hx Appendectomy: No Hx Cholecystectomy: No Hx Genitourinary Surgery: No Hx Orthopedic Surgery: No Anesthesia Reaction: No - PPD History Previous Implant?: Yes Documented Results: Negative w/o proof Implanted On Prior [facility] Admission?: Yes Date: 09/29/18 Results: 0mm PPD to be Administered?: No - Reproductive History Patient is a Female of Child Bearing Age (11 -55 yrs old): No (male) - Smoking Cessation Smoking history: Current every day smoker Have you smoked in the past 12 months: Yes Aproximately how many cigarettes per day: 10 Hx Chewing Tobacco Use: No Initiated information on smoking cessation: Yes 'Breaking Loose' booklet given: 08/22/19 - Substance & Tx. History Hx Alcohol Use: Yes Hx Substance Use: No Substance Use Type: Alcohol, Cocaine Hx Substance Use Treatment: Yes ([facility]) - Substances abused Cocaine Substance route: Smoking Frequency: Daily Amount used: 100 dollars Age of first use: 16 Date of last use: 08/20/19 Alcohol Substance route: Oral Frequency: Daily Amount used: 2 pints of vodka Age of first use: 16 Date of last use: 08/20/19 Admission Physical Exam S - Vital Signs Vital Signs: Vital Signs - 24 hr 08/21/19 21:38 Temperature 97.6 F Pulse Rate 84 Respiratory 16 Rate Blood Pressure 151/68 - Physical General Appearance: Yes: Moderate Distress, Tremorous, Sweating, Anxious HEENTM: Yes: Within Normal Limits Respiratory: Yes: Lungs Clear, Normal Breath Sounds, No Respiratory Distress Neck: Yes: Supple Breast: Yes: Breast Exam Deferred Cardiology: Yes: Regular Rhythm, Regular Rate Abdominal: Yes: Normal Bowel Sounds, Soft Back: Yes: Within Normal Limits Musculoskeletal: Yes: full range of Motion Extremities: Yes: Tremors Neurological: Yes: Within Normal Limits Integumentary: Yes: Warm Lymphatic: Yes: Within Normal Limits - Diagnostic (1) Alcohol dependence with uncomplicated withdrawal Current Visit: Yes Status: Chronic (2) Cocaine dependence, uncomplicated Current Visit: Yes Status: Chronic (3) Nicotine dependence Current Visit: Yes Status: Chronic Qualifiers: Nicotine product type: cigarettes Substance use status: uncomplicated Qualified Code(s): F17.210 - Nicotine dependence, cigarettes, uncomplicated Cleared for Admission S - Detox or Rehab [facility] Level of Care: Medically Managed Breathalyzer - Breathalyzer Breathalyzer: 0 Urine Drug Screen - Test Device Lot number: [id number] Expiration date: 04/14/21 - Control Is test valid?: Yes - Results Drug screen NEGATIVE: No Urine drug screen results: TATO-Cocaine Inpatient Rehab Admission - Rehab Decision to Admit Inpatient rehab admission?: No
[2019-08-22] MEDS ORDERED: IBUPROFEN 400 MG TABLET (FP) PO PRN (02:01)
[2019-08-22] MEDS ORDERED: BISMUTH SUBSALICYLATE 524 MG/30 ML UD PO PRN (02:01)
[2019-08-22] MEDS ORDERED: MENTHOL/PHENOL 1 EACH UD MM PRN (02:01)
[2019-08-22] MEDS ORDERED: MAG HYDROX/AL HYDROX/SIMETH 30 ML UNIT-DOSE CUP PO PRN (02:01)
[2019-08-22] MEDS ORDERED: METHOCARBAMOL 500 MG TABLET PO PRN (02:01)
[2019-08-22] MEDS ORDERED: ACETAMINOPHEN 325 MG TABLET (FP) PO PRN ×2 (02:01)
[2019-08-22] MEDS ORDERED: MAGNESIUM HYDROX 2400MG/30ML ORAL SUSPENSION 30 ML CUP PO PRN (02:01)
[2019-08-22] MEDS ORDERED: MELATONIN 5 MG TABLETS PO PRN (02:01)
[2019-08-22] MEDS ORDERED: MAGNESIUM CITRATE 300 ML BOTTLE PO PRN (02:01)
[2019-08-22] MEDS ORDERED: LORazepam 1 MG TABLET PO PRN (02:01)
[2019-08-22] MEDS: LORazepam 1 MG TABLET PO SCH ×4 (06:32→22:39)
[2019-08-22] MEDS: NICOTINE 14 MG/24 HOURS TOPICAL PATCH TD SCH (11:52)
[2019-08-22] MEDS: PRENATAL VITAMINS W/ FOLIC ACID TABLET (FP) PO SCH (11:52)
[2019-08-22] MEDS: amLODIPine BESYLATE 10 MG TABLET (FP) PO SCH (14:17)
--- NOTE | 2019-08-22 14:21 | PN ---
S CIWA - CIWA Score Nausea/Vomitin-No Nausea/No Vomiting Muscle Tremors: 2 Anxiety: 3 Agitation: 1-Slight > Activity Paroxysmal Sweats: 3 Orientation: 0-Oriented Tacttile Disturbances: 1-Very Mild Itch/Numbness Auditory Disturbances: 0-None Visual Disturbances: 0-None Headache: 2-Mild CIWA-Ar Total Score: 12 BHS Progress Note (SOAP) Subjective: Sweating, Fatigue, Tremors. Objective: PATIENT A & O X 3 . IN NO ACUTE DISTRESS. 08/22/19 14:28 Vital Signs Temperature 97.1 F L 08/22/19 13:23 Pulse Rate 96 H 08/22/19 13:23 Respiratory Rate 18 08/22/19 13:23 Blood Pressure 151/111 H 08/22/19 13:23 O2 Sat by Pulse Oximetry (%) RESULTS OF DETOX ADMISSION LAB RESULTS PENDING. Assessment: 08/22/19 14:30 WITHDRAWAL SYMPTOMS. HYPERTENSION. Plan: CONTINUE DETOX. PATIENT HAS BEEN PRESCRIBED ANTI-HYPERTENSIVE MEDICATION IN PAST, THINK THAT IT WAS AMLODIPINE, BUT NOT COMPLETELY CERTAIN ABOUT NAME. WILL START AMLODIPINE, 10 MG ORALLY FOR TIME BEING FOR ELEVATED BLOOD PRESSURE.
[2019-08-22] MEDS: THIAMINE HCL 100 MG TABLET (FP) PO SCH (22:39)
--- NOTE | 2019-08-22 23:26 | EKG ---
Test Reason : Blood Pressure : / mmHG Vent. Rate : 073 BPM Atrial Rate : 073 BPM P-R Int : 156 ms QRS Dur : 124 ms QT Int : 432 ms P-R-T Axes : 063 016 067 degrees QTc Int : 475 ms NORMAL SINUS RHYTHM RIGHT BUNDLE BRANCH BLOCK MINIMAL VOLTAGE CRITERIA FOR LVH, MAY BE NORMAL VARIANT SEPTAL INFARCT (CITED ON OR BEFORE 26-SEP-2018) ABNORMAL ECG WHEN COMPARED WITH ECG OF 27-SEP-2018 11:33, NO SIGNIFICANT CHANGE WAS FOUND Confirmed by SHARON TANG MD ([id number]) on 08/22/2019 11:26:22 PM Referred By: Ian Boo Confirmed By:SHARON TANG MD
[2019-08-23] MEDS: LORazepam 1 MG TABLET PO SCH ×4 (06:13→22:19)
[2019-08-23 09:59] LABS: HEMATOCRIT 40.1 % (35.4-49); HEMOGLOBIN 13.2 GM/dL (11.7-16.9); MCH 30.4 pg (25.7-33.7); MEAN CELL VOLUME 92.3 fl (80-96); MEAN PLT VOLUME 8.5 fl (7.5-11.1); PLATELET COUNT 240 K/MM3 (134-434); RBC 4.34 M/mm3 (4.00-5.60); RDW 12.7 % (11.9-15.9); WHITE BLOOD COUNT 4.3 K/mm3 (4.0-10.0)
[2019-08-23 10:08] LABS: BILIRUBIN,TOTAL 0.3 mg/dL (0.2-1); CREATININE 1.4 mg/dL (0.55-1.3); TOT PROT 6.6 g/dl (6.4-8.2)
[2019-08-23] MEDS: amLODIPine BESYLATE 10 MG TABLET (FP) PO SCH (11:45)
[2019-08-23] MEDS: NICOTINE 14 MG/24 HOURS TOPICAL PATCH TD SCH (11:45)
[2019-08-23] MEDS: PRENATAL VITAMINS W/ FOLIC ACID TABLET (FP) PO SCH (11:46)
--- NOTE | 2019-08-23 13:28 | PN ---
[facility] CIWA - CIWA Score Nausea/Vomitin-Mild Nausea/No Vomiting Muscle Tremors: 2 Anxiety: 3 Agitation: 2 Paroxysmal Sweats: 2 Orientation: 0-Oriented Tacttile Disturbances: 0-None Auditory Disturbances: 0-None Visual Disturbances: 0-None Headache: 0-None Present CIWA-Ar Total Score: 10 S Progress Note (SOAP) Subjective: Tremor, chills, sweating, interrupted sleep, runny nose, sneezing Objective: 08/23/19 13:23 Last Vital Signs Temp Pulse Resp BP Pulse Ox 98.2 F 65 16 111/65 08/23/19 09:53 08/23/19 09:53 08/23/19 09:53 08/23/19 09:53 Laboratory Tests 08/23/19 08/23/19 08/23/19 07:50 07:50 07:50 WBC 4.3 RBC 4.34 Hgb 13.2 Hct 40.1 MCV 92.3 MCH 30.4 MCHC 33.0 RDW 12.7 Plt Count 240 MPV 8.5 Sodium 141 Potassium 4.0 Chloride 107 Carbon Dioxide 29 Anion Gap 4 L BUN 15.0 Creatinine 1.4 H Est GFR (CKD-EPI)AfAm 64.18 Est GFR (CKD-EPI)NonAf 55.38 Random Glucose 74 Calcium 9.0 Total Bilirubin 0.3 AST 15 ALT 18 Alkaline Phosphatase 66 Total Protein 6.6 Albumin 3.0 L RPR Titer Nonreactive Labs reviewed: serum creatinine 1.4 (mildly elevated), albumin 3.0 (L) Assessment: 08/23/19 13:25 Withdrawal sxs Noted with prerenal azotemia and hypoalbuminemia Plan: Continue detox Encouraged PO water intake Prerenal azotemia: encouraged to drink more water, repeat BMP in AM Hypoalbuminemia, mild: encouraged diet
[2019-08-23] MEDS: hydrOXYzine PAMOATE 25 MG CAPSULE (FP) PO PRN (22:19)
[2019-08-23] MEDS: THIAMINE HCL 100 MG TABLET (FP) PO SCH (22:19)
[2019-08-24] MEDS ORDERED: LORazepam 0.5 MG TABLET PO PRN
[2019-08-24] MEDS: LORazepam 0.5 MG TABLET PO SCH ×4 (06:52→22:22)
--- NOTE | 2019-08-24 10:35 | PN ---
[facility] CIWA - CIWA Score Nausea/Vomitin-Mild Nausea/No Vomiting Muscle Tremors: 1-None Visible, but [place] Anxiety: 2 Agitation: 2 Paroxysmal Sweats: No Perspiration Orientation: 0-Oriented Tacttile Disturbances: 1-Very Mild Itch/Numbness Auditory Disturbances: 0-None Visual Disturbances: 0-None Headache: 0-None Present CIWA-Ar Total Score: 7 BHS Progress Note (SOAP) Subjective: alert,irritable,anxious,interrupted sleep Objective: 08/24/19 10:35 Vital Signs Temperature 97.9 F 08/24/19 08:16 Pulse Rate 77 08/24/19 08:16 Respiratory Rate 18 08/24/19 08:16 Blood Pressure 140/94 08/24/19 08:16 O2 Sat by Pulse Oximetry (%) Assessment: 08/24/19 10:35 withdrawal symptom Plan: continue detox ativan regimen,discharge in am
[2019-08-24] MEDS: NICOTINE 14 MG/24 HOURS TOPICAL PATCH TD SCH (11:00)
[2019-08-24] MEDS: amLODIPine BESYLATE 10 MG TABLET (FP) PO SCH (11:00)
[2019-08-24] MEDS: PRENATAL VITAMINS W/ FOLIC ACID TABLET (FP) PO SCH (11:00)
[2019-08-24] MEDS: THIAMINE HCL 100 MG TABLET (FP) PO SCH (22:22)
[2019-08-25] MEDS: hydrOXYzine PAMOATE 25 MG CAPSULE (FP) PO PRN (03:11)
[2019-08-25] MEDS ORDERED: LORazepam 0.5 MG TABLET PO ONE (05:00)
--- NOTE | 2019-08-25 08:54 | DS ---
[facility] Detox Discharge Summary Admission Date: 08/22/19 Discharge Date: 08/25/19 - History Present History: Alcohol Dependence, Cocaine Dependence - Physical Exam Results Vital Signs: Vital Signs Temperature 98.2 F 08/25/19 06:00 Pulse Rate 75 08/25/19 06:00 Respiratory Rate 18 08/25/19 06:00 Blood Pressure 150/90 08/25/19 06:00 O2 Sat by Pulse Oximetry (%) Pertinent Admission Physical Exam Findings: pt arrived in withdrawals Vital Signs Temperature 98.2 F 08/25/19 06:00 Pulse Rate 75 08/25/19 06:00 Respiratory Rate 18 08/25/19 06:00 Blood Pressure 150/90 08/25/19 06:00 O2 Sat by Pulse Oximetry (%) Laboratory Tests 08/23/19 08/23/19 08/23/19 07:50 07:50 07:50 WBC 4.3 RBC 4.34 Hgb 13.2 Hct 40.1 MCV 92.3 MCH 30.4 MCHC 33.0 RDW 12.7 Plt Count 240 MPV 8.5 Sodium 141 Potassium 4.0 Chloride 107 Carbon Dioxide 29 Anion Gap 4 L BUN 15.0 Creatinine 1.4 H Est GFR (CKD-EPI)AfAm 64.18 Est GFR (CKD-EPI)NonAf 55.38 Random Glucose 74 Calcium 9.0 Total Bilirubin 0.3 AST 15 ALT 18 Alkaline Phosphatase 66 Total Protein 6.6 Albumin 3.0 L RPR Titer Nonreactive today pt is aaox3 ambulating no acute distress - Treatment Hospital Course: Detox Protocol Followed, Detoxed Safely, Responded well, Discharged Condition Good, Rehab Referral Accepted Patient has Accepted a Rehab Referral to: pt referred to inpatient rehab - Medication Discharge Medications: Ambulatory Orders Amlodipine Besylate 10 mg PO DAILY 08/22/19 - Diagnosis (1) Hypertension Current Visit: Yes Status: Acute (2) Alcohol dependence with uncomplicated withdrawal Current Visit: Yes Status: Chronic (3) Cocaine dependence, uncomplicated Current Visit: Yes Status: Chronic (4) Nicotine dependence Current Visit: Yes Status: Chronic Qualifiers: Nicotine product type: cigarettes Substance use status: uncomplicated Qualified Code(s): F17.210 - Nicotine dependence, cigarettes, uncomplicated (5) Cocaine dependence Current Visit: Yes Status: Chronic Qualifiers: Substance use status: with cocaine-induced anxiety disorder Qualified Code( s): 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
[2019-08-25 09:12] VITALS: BP 147/94; PULSE 95; TEMP 98.1
[2019-08-25] MEDS: NICOTINE 14 MG/24 HOURS TOPICAL PATCH TD SCH (10:29)
[2019-08-25] MEDS: amLODIPine BESYLATE 10 MG TABLET (FP) PO SCH (10:29)
[2019-08-25] MEDS: PRENATAL VITAMINS W/ FOLIC ACID TABLET (FP) PO SCH (10:29)
== END 2019-08-25 12:40 | disposition other institution (70) | DRG 774 ==
LOC: YASAS 20:25 → Y6N 08-22 02:15
PROVIDERS: ADMIT Allergy & Immunology; ATTEND Allergy & Immunology
PROC: HZ2ZZZZ Detoxification Services for Substance Abuse Treatment (ICD-10-PCS; principal; 2019-08-22)
DX: F10.230 Alcohol dependence with withdrawal, uncomplicated (principal); F14.20 Cocaine dependence, uncomplicated; F17.210 Nicotine dependence, cigarettes, uncomplicated; I10 Essential (primary) hypertension; E88.09 Other disorders of plasma-protein metabolism, not elsewhere classified; E06.9 Thyroiditis, unspecified; R94.31 Abnormal electrocardiogram [ECG] [EKG]; R79.89 Other specified abnormal findings of blood chemistry; Z91.018 Allergy to other foods
CPT/HCPCS: 36415; 80053; 85027; 86593; 93005; 93010

== ENCOUNTER 2019-08-25 12:49 | Inpatient (IN) | payer OTHER ==
[2019-08-25] MEDS ORDERED: MAGNESIUM HYDROX 2400MG/30ML ORAL SUSPENSION 30 ML CUP PO PRN (14:58)
[2019-08-25] MEDS ORDERED: MAG HYDROX/AL HYDROX/SIMETH 30 ML UNIT-DOSE CUP PO PRN (14:58)
[2019-08-25] MEDS ORDERED: LOPERAMIDE HCL 2 MG CAPSULE PO PRN (14:58)
[2019-08-25] MEDS ORDERED: IBUPROFEN 400 MG TABLET (FP) PO PRN (14:58)
[2019-08-25] MEDS ORDERED: MAGNESIUM CITRATE 300 ML BOTTLE PO PRN (14:58)
[2019-08-25] MEDS ORDERED: hydrOXYzine PAMOATE 50 MG CAPSULE (FP) PO PRN (14:58)
[2019-08-25] MEDS ORDERED: NICOTINE POLACRILEX 4 MG GUM BUC PRN (14:58)
[2019-08-25] MEDS ORDERED: ACETAMINOPHEN 325 MG TABLET (FP) PO PRN (14:58)
[2019-08-25] MEDS ORDERED: guaiFENesin 200 MG/10 ML 10 ML UNIT-DOSE CUPS PO PRN (14:58)
[2019-08-25] MEDS ORDERED: MENTHOL/PHENOL 1 EACH UD MM PRN (14:58)
[2019-08-25] MEDS ORDERED: P-EPHED 60MG/TRIPROLIDI 2.5MG TABLET PO PRN (14:58)
--- NOTE | 2019-08-25 14:58 | HP ---
[facility] Rehab Assess/Revision - Admission History Admitted to Rehab from: [address] - Vital signs Vital Signs: Vital Signs Period Temp Pulse Resp BP Sys/Talamantes Pulse Ox Last 24 Hr 97.8 F 86 18 134/77 - Findings Detox History & Physical reviewed: Yes Concur with findings: Yes Inpatient Rehab Admission - Rehab Decision to Admit Inpatient rehab admission?: Yes - Initial Determination Are CD services needed?: Yes Free of communicable disease: Yes Not in need of hospitalization: Yes - Rehab Admission Criteria Previous failed treatment: Yes Poor recovery environment: Yes Comorbidities: Yes Lacks judgement: Yes Patient is meeting Inpatient Rehab admission criteria:: Yes
[2019-08-25] MEDS: THIAMINE HCL 100 MG TABLET (FP) PO SCH (21:43)
[2019-08-26] MEDS: NICOTINE 21 MG/24 HOURS TOPICAL PATCH TD SCH (10:53)
[2019-08-26] MEDS: PRENATAL VITAMINS W/ FOLIC ACID TABLET (FP) PO SCH (10:54)
[2019-08-26] MEDS: amLODIPine BESYLATE 10 MG TABLET (FP) PO SCH (10:54)
--- NOTE | 2019-08-26 11:20 | PN ---
S Progress Note (SOAP) Subjective: Here for substance use treatment PMHx:59 years old male with a long history of alcohol dependence. Patient reports that his last detox was in September 2018 at [facility]. He reports a year of sobriety and regrets recent relapse. He denies medical history and denies suicidal ideation at this time. He states that he had a blackout 2 weeks ago Objective: 08/26/19 11:18 Vital Signs Period Temp Pulse Resp BP Sys/Talamantes Pulse Ox Last 24 Hr 97.8 F-98.9 F 83-86 18-18 134-153/77-99 P/E General: no apparent distress HEENTM: Normocephlic, PERRLA Neck: supple Heart: s1 s2 Lungs: clear MSK:full weight bearing, ROM, Neuro: CN 2-12 intact Assessment: substance use treatment 08/26/19 11:19 Plan: Continue rehab treatment Maintain safety Reviewed home medications.
[2019-08-26] MEDS: MELATONIN 5 MG TABLETS PO PRN (21:42)
[2019-08-26] MEDS: THIAMINE HCL 100 MG TABLET (FP) PO SCH (21:42)
[2019-08-27] MEDS: amLODIPine BESYLATE 10 MG TABLET (FP) PO SCH (10:37)
[2019-08-27] MEDS: NICOTINE 21 MG/24 HOURS TOPICAL PATCH TD SCH (10:37)
[2019-08-27] MEDS: PRENATAL VITAMINS W/ FOLIC ACID TABLET (FP) PO SCH (10:37)
[2019-08-27] MEDS: MELATONIN 5 MG TABLETS PO PRN (21:23)
[2019-08-27] MEDS: THIAMINE HCL 100 MG TABLET (FP) PO SCH (21:23)
[2019-08-28] MEDS: PRENATAL VITAMINS W/ FOLIC ACID TABLET (FP) PO SCH (10:20)
[2019-08-28] MEDS: amLODIPine BESYLATE 10 MG TABLET (FP) PO SCH (10:20)
[2019-08-28] MEDS: NICOTINE 21 MG/24 HOURS TOPICAL PATCH TD SCH (10:20)
[2019-08-28] MEDS: THIAMINE HCL 100 MG TABLET (FP) PO SCH (21:38)
[2019-08-29] MEDS: NICOTINE 21 MG/24 HOURS TOPICAL PATCH TD SCH (10:25)
[2019-08-29] MEDS: PRENATAL VITAMINS W/ FOLIC ACID TABLET (FP) PO SCH (10:25)
[2019-08-29] MEDS: amLODIPine BESYLATE 10 MG TABLET (FP) PO SCH (10:25)
[2019-08-29] MEDS: THIAMINE HCL 100 MG TABLET (FP) PO SCH (21:13)
[2019-08-29] MEDS: MELATONIN 5 MG TABLETS PO PRN (21:13)
[2019-08-30] MEDS: NICOTINE 21 MG/24 HOURS TOPICAL PATCH TD SCH (09:52)
[2019-08-30] MEDS: PRENATAL VITAMINS W/ FOLIC ACID TABLET (FP) PO SCH (09:52)
[2019-08-30] MEDS: amLODIPine BESYLATE 10 MG TABLET (FP) PO SCH (09:52)
[2019-08-30] MEDS: THIAMINE HCL 100 MG TABLET (FP) PO SCH (21:33)
[2019-08-31] MEDS: amLODIPine BESYLATE 10 MG TABLET (FP) PO SCH (10:04)
[2019-08-31] MEDS: NICOTINE 21 MG/24 HOURS TOPICAL PATCH TD SCH (10:04)
[2019-08-31] MEDS: PRENATAL VITAMINS W/ FOLIC ACID TABLET (FP) PO SCH (10:04)
[2019-08-31] MEDS: MELATONIN 5 MG TABLETS PO PRN (22:08)
[2019-08-31] MEDS: THIAMINE HCL 100 MG TABLET (FP) PO SCH (22:09)
[2019-09-01] MEDS: NICOTINE 21 MG/24 HOURS TOPICAL PATCH TD SCH (10:44)
[2019-09-01] MEDS: amLODIPine BESYLATE 10 MG TABLET (FP) PO SCH (10:44)
[2019-09-01] MEDS: PRENATAL VITAMINS W/ FOLIC ACID TABLET (FP) PO SCH (10:44)
[2019-09-01] MEDS: MELATONIN 5 MG TABLETS PO PRN (21:00)
[2019-09-01] MEDS: THIAMINE HCL 100 MG TABLET (FP) PO SCH (21:00)
[2019-09-02] MEDS: NICOTINE 21 MG/24 HOURS TOPICAL PATCH TD SCH (10:16)
[2019-09-02] MEDS: PRENATAL VITAMINS W/ FOLIC ACID TABLET (FP) PO SCH (10:22)
[2019-09-02] MEDS: amLODIPine BESYLATE 10 MG TABLET (FP) PO SCH (10:22)
[2019-09-02] MEDS: VITAMINS A AND D TOPICAL OINTMENT 60 GM TUBE TP SCH (19:01)
[2019-09-02] MEDS: THIAMINE HCL 100 MG TABLET (FP) PO SCH (21:33)
[2019-09-02] MEDS: MELATONIN 5 MG TABLETS PO PRN (21:33)
[2019-09-03] MEDS: VITAMINS A AND D TOPICAL OINTMENT 60 GM TUBE TP SCH ×2 (00:17→06:38)
[2019-09-03] MEDS ORDERED: VITAMINS A AND D TOPICAL OINTMENT 60 GM TUBE TP PRN (08:43)
[2019-09-03] MEDS: NICOTINE 21 MG/24 HOURS TOPICAL PATCH TD SCH (10:34)
[2019-09-03] MEDS: PRENATAL VITAMINS W/ FOLIC ACID TABLET (FP) PO SCH (10:34)
[2019-09-03] MEDS: amLODIPine BESYLATE 10 MG TABLET (FP) PO SCH (10:34)
[2019-09-03] MEDS: MELATONIN 5 MG TABLETS PO PRN (21:10)
[2019-09-03] MEDS: THIAMINE HCL 100 MG TABLET (FP) PO SCH (21:10)
[2019-09-04] MEDS: amLODIPine BESYLATE 10 MG TABLET (FP) PO SCH (10:32)
[2019-09-04] MEDS: NICOTINE 21 MG/24 HOURS TOPICAL PATCH TD SCH (10:32)
[2019-09-04] MEDS: PRENATAL VITAMINS W/ FOLIC ACID TABLET (FP) PO SCH (10:32)
[2019-09-04] MEDS: MELATONIN 5 MG TABLETS PO PRN (21:37)
[2019-09-04] MEDS: THIAMINE HCL 100 MG TABLET (FP) PO SCH (21:38)
[2019-09-05] MEDS: PRENATAL VITAMINS W/ FOLIC ACID TABLET (FP) PO SCH (10:52)
[2019-09-05] MEDS: NICOTINE 21 MG/24 HOURS TOPICAL PATCH TD SCH (10:52)
[2019-09-05] MEDS: amLODIPine BESYLATE 10 MG TABLET (FP) PO SCH (10:55)
[2019-09-05] MEDS: THIAMINE HCL 100 MG TABLET (FP) PO SCH (22:01)
[2019-09-05] MEDS: MELATONIN 5 MG TABLETS PO PRN (22:01)
[2019-09-06] MEDS: NICOTINE 21 MG/24 HOURS TOPICAL PATCH TD SCH (10:25)
[2019-09-06] MEDS: PRENATAL VITAMINS W/ FOLIC ACID TABLET (FP) PO SCH (10:25)
[2019-09-06] MEDS: amLODIPine BESYLATE 10 MG TABLET (FP) PO SCH (10:25)
[2019-09-06] MEDS: MELATONIN 5 MG TABLETS PO PRN (22:15)
[2019-09-06] MEDS: THIAMINE HCL 100 MG TABLET (FP) PO SCH (22:15)
[2019-09-07] MEDS: NICOTINE 21 MG/24 HOURS TOPICAL PATCH TD SCH (10:14)
[2019-09-07] MEDS: PRENATAL VITAMINS W/ FOLIC ACID TABLET (FP) PO SCH (10:14)
[2019-09-07] MEDS: amLODIPine BESYLATE 10 MG TABLET (FP) PO SCH (10:14)
--- NOTE | 2019-09-07 12:21 | DS ---
[facility] Rehab Discharge Summary - [facility] Rehab Discharge Summary Admission Date: 08/25/19 Discharge Date: 09/07/19 - History Present History: Alcohol dependence, Cocaine dependence Pertinent Past History: 59 years old male with a long history of alcohol dependence. Patient reports that his last detox was in September 2018 at [facility]. He reports a year of sobriety and regrets recent relapse. He denies medical history and denies suicidal ideation at this time. He states that he had a blackout 2 weeks ago - Discharge Physical Exam Vital Signs: Vital Signs Temperature 98 F 09/06/19 06:41 Pulse Rate 74 09/07/19 09:30 Respiratory Rate 18 09/07/19 09:30 Blood Pressure 143/77 09/07/19 09:30 O2 Sat by Pulse Oximetry (%) Pertinent Admission Physical Exam Findings: General Appearance: No apparent distress HEENTM: normocephalic Respiratory: Lungs Clear, Neck: Supple Cardiology: S1 S2 Abdominal: +Bowel Sounds, Soft Musculoskeletal: full range of Motion Neurological: CN 2-12 intact - Treatment Discharge Condition: Outpatient referral accepted (Medically stable for discharge.Patient will go to [facility]) Hospital Course: Patient attended groups, had 1:1 with counselor, was adherent to his medication regimen and treatment plan; had no acute or urgent medical problems while in rehab. - Medication Discharge Medications: Ambulatory Orders Amlodipine Besylate 10 mg PO DAILY 08/22/19 - Medication-Assisted Treatment (MAT) Medication-Assisted Treatment (MAT): No - Discharge Instructions Diet, activity, other medical instructions: Diet: as tolerated Activity: as tolerated Other medical instructions: Please follow up with discharge referral. 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
[2019-09-07] MEDS: THIAMINE HCL 100 MG TABLET (FP) PO SCH (21:37)
[2019-09-08 06:22] VITALS: BP 135/85; PULSE 82; TEMP 97.5
== END 2019-09-08 07:05 | disposition home or self-care (01) | DRG 772 ==
LOC: YASAS 12:49 → Y3W 12:51
PROVIDERS: ADMIT Neuromusculoskeletal Medicine & OMM; ATTEND Neuromusculoskeletal Medicine & OMM
PROC: HZ42ZZZ Group Counseling for Substance Abuse Treatment, Cognitive-Behavioral (ICD-10-PCS; principal; 2019-08-25)
DX: F10.20 Alcohol dependence, uncomplicated (principal); F14.20 Cocaine dependence, uncomplicated; F17.210 Nicotine dependence, cigarettes, uncomplicated; Z91.018 Allergy to other foods